=== PATIENT | male | born 1940 | race Caucasian/White ===

== ENCOUNTER 2019-03-15 14:31 | Outpatient (CLI) | payer MEDICARE ==
--- NOTE | 2019-03-15 15:49 | ULT ---
VENOUS DOPPLER ULTRASOUND OF THE RIGHT LOWER EXTREMITY: 03/15/19 HISTORY: 78-year-old male with pain in the right calf. TECHNIQUE: Brennan scale, color flow and spectral Doppler imaging of the deep venous system on the right lower extr emity is performed. FINDINGS: There is good flow, compression, and augmentation noted in the right common femoral, femoral, deep fe moral, popliteal, posterior tibial, and peroneal veins. There is absence of compression and decreased flow due to intramural thrombus in a portion of the gre ater saphenous vein. IMPRESSION: 1. No evidence of DVT in the right lower extremity. 2. Thrombophlebitis of the right greater saphenous vein. POS: [facility]
== END 2019-03-15 14:32 | disposition home or self-care (01) ==
LOC: BURULT 14:31
PROVIDERS: ATTEND Physician Assistant
DX: M79.604 Pain in right leg (principal); M79.89 Other specified soft tissue disorders; I80.01 Phlebitis and thrombophlebitis of superficial vessels of right lower extremity

== ENCOUNTER 2021-03-19 17:40 | Emergency (ER) | payer MEDICARE ==
[2021-03-20 08:44] LABS: SARS-CoV-2 PCR by NAA DETECTED (NotDetected)
== END 2021-03-19 18:25 | disposition home or self-care (01) ==
LOC: BURERS 17:40
DX: U07.1 COVID-19 (principal)
CPT/HCPCS: U0003; U0005; 99283

== ENCOUNTER 2021-03-29 17:14 | Emergency (ER) | payer MEDICARE | END 2021-03-29 17:59 | disposition home or self-care (01) | LOC: BURERS 17:14 | DX: Z13.9 Encounter for screening, unspecified (principal) | CPT/HCPCS: 99282 ==